=== PATIENT | male | born 1990 | race Asian ===

== ENCOUNTER 2017-01-16 03:21 | Emergency (ER) | payer OTHER ==
[2017-01-16 05:41] VITALS: BP 119/71
== END 2017-01-16 05:20 | disposition home or self-care (01) ==
LOC: ED 03:21
DX: I10 Essential (primary) hypertension (principal); F90.9 Attention-deficit hyperactivity disorder, unspecified type; T78.8XXA Other adverse effects, not elsewhere classified, initial encounter; X58.XXXA Exposure to other specified factors, initial encounter

== ENCOUNTER 2017-04-17 14:05 | Emergency (ER) | payer OTHER ==
[2017-04-17 18:37] LABS: BASOPHIL % 0.4 % (0-2); PLATELET COUNT 210 x10^3mcL (130-400); RED CELL DISTRIBUTION WIDTH 12.3 % (11.5-14.5)
[2017-04-17 18:45] LABS: CALCIUM 9.5 mg/dL (8.5-10.1); CARBON DIOXIDE 27.4 mmol/L (21-32); CHLORIDE SERUM 104 mmol/L (98-107); CREATININE SERUM 1.1 mg/dL (0.7-1.3); GFR1 > 60 mL/min; GLUCOSE SERUM 94 mg/dL (74-106); POTASSIUM SERUM 4.3 mmol/L (3.5-5.1); SODIUM SERUM 140 mmol/L (136-145)
[2017-04-17 18:49] LABS: ALBUMIN 4.4 g/dL (3.4-5.0); ALKALINE PHOSPHATASE 73 U/L (46-116); ALT/SGPT 104 U/L (16-63); AST/SGOT 66 U/L (15-37); BILIRUBIN TOTAL 2.81 mg/dL (0.20-1.00)
[2017-04-17 18:50] LABS: TOTAL PROTEIN, SERUM 8.5 g/dL (6.4-8.2)
[2017-04-17 20:12] VITALS: BP 132/72
== END 2017-04-17 20:16 | disposition home or self-care (01) ==
LOC: ED 14:05
PROVIDERS: Emergency Medicine
DX: I10 Essential (primary) hypertension (principal)
CPT/HCPCS: 36415

== ENCOUNTER 2018-11-30 21:42 | Emergency (ER) | payer OTHER ==
[~2018-11-30] VITALS: Ht 172.7 cm; Wt 99.3 kg
[2018-11-30 21:46] VITALS: BP 165/98; Ht 172.7 cm; Wt 99.3 kg
== END 2018-11-30 22:13 | disposition left against medical advice (07) ==
LOC: ED 21:42
DX: Z53.21 Procedure and treatment not carried out due to patient leaving prior to being seen by health care provider (principal)

== ENCOUNTER 2019-08-25 21:14 | Emergency (ER) | payer OTHER ==
[~2019-08-25] VITALS: Ht 172.7 cm; Wt 97.3 kg
[2019-08-25 22:14] LABS: BASOPHIL % 0.4 % (0-2); PLATELET COUNT 183 x10^3mcL (130-400); RED CELL DISTRIBUTION WIDTH 12.5 % (11.5-14.5)
[2019-08-25 22:25] LABS: CALCIUM 9.1 mg/dL (8.5-10.1); CARBON DIOXIDE 28.2 mmol/L (21-32); CHLORIDE SERUM 107 mmol/L (98-107); CREATININE SERUM 1.2 mg/dL (0.7-1.3); GFR1 > 60 mL/min; GLUCOSE SERUM 119 mg/dL (74-106); POTASSIUM SERUM 4.4 mmol/L (3.5-5.1); SODIUM SERUM 143 mmol/L (136-145)
[2019-08-25 22:29] LABS: ALKALINE PHOSPHATASE 76 U/L (46-116); ALT/SGPT 65 U/L (16-63); AST/SGOT 21 U/L (15-37); BILIRUBIN TOTAL 1.68 mg/dL (0.20-1.00); TOTAL PROTEIN, SERUM 7.6 g/dL (6.4-8.2)
[2019-08-25 23:14] VITALS: BP 129/62
== END 2019-08-25 23:14 | disposition home or self-care (01) ==
LOC: ED 21:14
PROVIDERS: Emergency Medicine
DX: R07.89 Other chest pain (principal); I10 Essential (primary) hypertension
CPT/HCPCS: 36415; 83880; 87804; Q0092